=== PATIENT | male | born 1955 | race Caucasian/White ===

== ENCOUNTER 2020-04-28 15:52 | Emergency (ER) | payer MEDICARE ==
[~2020-04-28] VITALS: Ht 188 cm; Wt 111.6 kg
[~2020-04-28 15:52] MED LIST: ALBUTEROL2.5 MG/31 INH; AMLODIPINE BESYL5 MG; ASPIRIN EC325 M1 PO; ASPIRIN325; ATIVAN0.5 MG PO; ATIVAN1 MG PO; AVAPRO300 MG; AZITHROMYCIN 2250 MG PO; BACTRIM DS TAB1 EACH PO; CARVEDILOL12.5 MG PO; CLONAZEPAM 1 MG1 M1 PO; COREG CR40 MG PO; HCTZ; LOPRESSOR PO; MS CONTIN15 MG PO; NORVASC10 MG PO; OXYCODONE HCL5 M1 PO; OXYCONTIN10 M1 PO; PRAVACHOL40 MG PO; PREDNISONE 10 M10 M1 PO; PREDNISONE 20 M20 M1 PO; PROAIR HFA8.5 GM INH; TUSSIONEX PENN473 ML PO; ULTRAM 50MG TAB50 MG PO; [UNRECOGNIZED DRUG - OTHER] INH
[2020-04-28] MEDS ORDERED: PROTONIX 20 MG20 MG PO (16:10)
[2020-04-28] MEDS ORDERED: KEFLEX500 M1 PO (17:51)
[2020-04-28 19:07] VITALS: BP 166/81
== END 2020-04-28 19:08 | disposition home or self-care (01) ==
LOC: M.ERS 15:52
DX: S91.011A Laceration without foreign body, right ankle, initial encounter (principal); S91.012A Laceration without foreign body, left ankle, initial encounter; I10 Essential (primary) hypertension; J44.9 Chronic obstructive pulmonary disease, unspecified; F32.9 Major depressive disorder, single episode, unspecified; F41.9 Anxiety disorder, unspecified; Z90.49 Acquired absence of other specified parts of digestive tract; Z87.891 Personal history of nicotine dependence; W26.8XXA Contact with other sharp object(s), not elsewhere classified, initial encounter; Y93.89 Activity, other specified; Y92.89 Other specified places as the place of occurrence of the external cause; Y99.8 Other external cause status